=== PATIENT | female | born 1995 | race Caucasian/White ===

== ENCOUNTER 2018-01-26 19:49 | Emergency (ER) | payer OTHER ==
[~2018-01-26] VITALS: Ht 175.3 cm; Wt 72.0 kg
[2018-01-26 20:02] VITALS: BP 119/75; PULSE 82; RESP 16; TEMP 98.8; O2SAT 99
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
[2018-01-26] MEDS ORDERED: TETANUS/DIPHTHERIA TOXOID ADULT 0.5 ML VIAL IM ONE (22:00)
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
[2018-01-26] MEDS ORDERED: HYDR-3516 PO (22:23)
== END 2018-01-26 23:01 | disposition home or self-care (01) ==
LOC: NEPE 19:49
DX: S52.512A Displaced fracture of left radial styloid process, initial encounter for closed fracture (principal); S52.612A Displaced fracture of left ulna styloid process, initial encounter for closed fracture; R07.89 Other chest pain; M54.89 Other dorsalgia; V47.0XXA Car driver injured in collision with fixed or stationary object in nontraffic accident, initial encounter; Y92.410 Unspecified street and highway as the place of occurrence of the external cause; Z23 Encounter for immunization
CPT/HCPCS: 29125; 71045; 72072; 72125; 73110; 90471; 90714; 96372